=== PATIENT | male | born 1995 | race Hispanic/Latino ===

== ENCOUNTER 2022-05-04 19:26 | Emergency (ER) | payer OTHER ==
[~2022-05-04] VITALS: Ht 172.7 cm; Wt 49.9 kg
[2022-05-04 19:47] LABS: APPEARANCE,URINE CLOUDY (CLEAR); BILIRUBIN,URINE NEGATIVE (NEGATIVE); COLOR,URINE YELLOW (YELLOW); GLUCOSE, URINE (UA) NEGATIVE (NEGATIVE); KETONES,URINE 15 mg/dL (NEGATIVE); LEUKOCYTE ESTERASE ,URINE SMALL (NEGATIVE); NITRATE,URINE NEGATIVE (NEGATIVE); OCCULT BLOOD,URINE NEGATIVE (NEGATIVE); PROTEIN,URINE NEGATIVE (NEGATIVE); UROBILINOGEN,URINE 0.2 mg/dL (0.2-1.0)
[2022-05-04 19:54] LABS: WBC,URINE 26-50 /HPF (0-1)
[2022-05-04 19:56] LABS: BACTERIA,URINE Few /HPF (None Seen); MUCUS,URINE Many LPF (None Seen); SQUAMOUS EPITHELIAL CELL,UR Few /HPF (0-2)
[2022-05-04] MEDS ORDERED: CEFTRIAXONE 1G VIAL ONE (20:11)
[2022-05-04] MEDS ORDERED: 0.9%NACL 1000ML 1,000 ML IV ONE ×2 (20:12→20:30)
[2022-05-04] MEDS ORDERED: KETOROLAC 15MG/ML VIAL (15MG/ML) ONE (20:12)
[2022-05-04] MEDS ORDERED: ONDANSETRON 4MG INJ ONE (20:14)
[2022-05-04] MEDS ORDERED: KETOROLAC 15MG/ML VIAL (15MG/ML) IV ONE (20:30)
[2022-05-04] MEDS ORDERED: ONDANSETRON 4MG INJ IVP ONE (20:30)
[2022-05-04] MEDS ORDERED: CEFTRIAXONE 1G VIAL IVP ONE (20:30)
[2022-05-04] MEDS ORDERED: AZITHROMYCIN 250 MG TABLET PO ONE (20:30)
[2022-05-04 20:33] LABS: BASOPHILS % (AUTO) 0.2 % (0.0-5.0); EOSINOPHILS % (AUTO) 0.2 % (0.0-8.0); HEMATOCRIT 43.9 % (42-54); LYMPHOCYTES % (AUTO) 17.3 % (21.0-51.0); MEAN CORPUSCULAR HEMOGLOBIN 31.2 pg (27.0-33.0); MEAN CORPUSCULAR HGB CONC 35.8 g/dL (32.0-36.0); MEAN CORPUSCULAR VOLUME 87.3 fL (79-99); MONOCYTES % (AUTO) 4.1 % (3.0-13.0); PLATELET COUNT (AUTO) 226 K/uL (130-400); RED BLOOD CELL COUNT(AUTO) 5.03 MIL/uL (4.50-6.20); WHITE BLOOD COUNT (AUTO) 12.1 K/uL (4.8-10.8)
[2022-05-04 20:42] LABS: AMPHET/METH SCREEN,URINE NEGATIVE (NEGATIVE); BARBITURATE SCREEN, URINE NEGATIVE (NEGATIVE); BENZODIAZEPINES SCREEN,URINE NEGATIVE (NEGATIVE); COCAINE SCREEN,URINE NEGATIVE (NEGATIVE)
[2022-05-04 20:43] LABS: CANNABINOID SCREEN,URINE NEGATIVE (NEGATIVE); PHENCYCLIDINE SCREEN,URINE NEGATIVE (NEGATIVE)
[2022-05-04 20:43] LABS: CREATININE 0.7 mg/dL (0.5-1.5); POTASSIUM 3.5 mmol/L (3.5-5.1)
[2022-05-04] MEDS ORDERED: CEPH500B PO (20:44)
[2022-05-04 20:46] LABS: ALBUMIN 4.5 g/dL (3.5-5.0); TOTAL PROTEIN, SERUM 8.1 g/dL (6.0-8.3)
[2022-05-04 20:56] VITALS: BP 112/58
== END 2022-05-04 21:02 | disposition home or self-care (01) ==
LOC: EDH 19:26
DX: N39.0 Urinary tract infection, site not specified (principal); Z79.1 Long term (current) use of non-steroidal anti-inflammatories (NSAID)
CPT/HCPCS: 99284; 96374; 96375; 96361; 80053; 80305; 85025; 87088; 87797; 87486; 36415; 81001; J7030; J0696; J2405; J1885